=== PATIENT | female | born 1960 | race Caucasian/White ===

== ENCOUNTER 2023-12-03 21:16 | Emergency (ER) | payer OTHER, SELFPAY ==
[2023-12-03 21:31] VITALS: BP 135/76; PULSE 73; RESP 15; O2SAT 100
--- NOTE | 2023-12-03 21:40 | ED.GENADULT ---
HPI - General Adult General Chief complaint: Allergic Reaction Stated complaint: allergic reaction to blood draw Time Seen by Provider: 12/03/23 21:28 History of Present Illness HPI narrative: This is a 61-year-old female presenting ED right arm redness. Patient had a blood draw by her primary care physician performed yesterday. Since then she had a expanding red area. At this point goes from approximately her wrist up into her middle of her bicep. It is warm to touch she says that it [place]. Patient denies fever chills nausea diarrhea. No history of cellulitis. Related Data Allergies Allergy/AdvReac Type Severity Reaction Status Date / Time tirzepatide [From Mounjaro] Allergy Rash Verified 12/03/23 21:19 esomeprazole AdvReac Unknown Verified 12/03/23 21:19 Sulfa (Sulfonamide AdvReac Rash Verified 12/03/23 21:19 Antibiotics) Exam Narrative: APPEARANCE: No apparent distress. Head: atraumatic. EYES: EOMI, NOSE: Atraumatic NECK: Trachea midline RESPIRATORY: No increased rate of breathing CARDIOVASCULAR: RRR, ABDOMINAL: Non-distended MUSCULOSKELETAl: No obvious deformities NEURO: Alert. Moving 4/4 extremities SKIN:: Erythema over the right arm from just proximal wrist to the mid biceps. Warm to touch. PSYCHIATRIC: Normal affect Course Vital Signs Vital signs: Vital Signs Pulse Rate 73 12/03/23 21:31 Respiratory Rate 15 12/03/23 21:31 Blood Pressure 135/76 12/03/23 21:31 Pulse Oximetry 100 12/03/23 21:31 Oxygen Delivery Room Air 12/03/23 21:31 Pulse Rate 73 12/03/23 21:31 Respiratory Rate 15 12/03/23 21:31 Blood Pressure 135/76 12/03/23 21:31 Pulse Oximetry 100 12/03/23 21:31 Oxygen Delivery Room Air 12/03/23 21:31 Medical Decision Making [facility] Narrative Medical decision making narrative: -Course: 63-year-old female presenting with redness of her right arm. This developed since a blood draw yesterday. Patient says she had this happen the past after she received a Mounjaro. She ended up being put on a long course of steroids by her oil rigger. At this time we will cover the patient for possible cellulitis although this is not a definitive diagnosis. Additionally the patient is requesting a short course of steroids which will be provided. She has been instructed to follow up closely with her PCP to ensure her symptoms are resolving. Given return precautions. 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 -Interventions: 1 g Ancef -Shared decision making / Disposition: Discharge -RX Keflex, medrol dose samuel Vital Signs Vital Signs: Vital Signs Pulse Rate 73 12/03/23 21:31 Respiratory Rate 15 12/03/23 21:31 Blood Pressure 135/76 12/03/23 21:31 Pulse Oximetry 100 12/03/23 21:31 Oxygen Delivery Room Air 12/03/23 21:31 Pulse Rate 73 12/03/23 21:31 Respiratory Rate 15 12/03/23 21:31 Blood Pressure 135/76 12/03/23 21:31 Pulse Oximetry 100 12/03/23 21:31 Oxygen Delivery Room Air 12/03/23 21:31 Discharge Plan Discharge Clinical Impression: Cellulitis Patient Disposition: Home, Self-Care Condition: Stable Instructions: Antibiotic Form, Cellulitis (ED) Additional Instructions: Please follow-up closely with your primary care physician in the next 1-2 days. Take Keflex/medrol dose samuel as instructed. Use Motrin and Tylenol for pain. If your redness continues to expand, becomes very painful or you develop systemic signs of illness such as fever or chills please return emergency department for re-evaluation. Prescriptions: New ibuprofen 800 mg tablet 800 mg PO TID PRN (Reason: pain) 7 Days Qty: 21 0RF acetaminophen 500 mg tablet 1,000 mg PO TID PRN (Reason: anatoly) 7 Days Qty: 42 0RF cephalexin 500 mg caps
[2023-12-03] MEDS: ceFAZolin 1 GM/NS 50 ML 1 GM/50 ML BAG IVPB (22:24)
[2023-12-03] MEDS: dexAMETHasone SOD PHOS INJ 10 MG/ML 1 ML VIAL IV PUSH (22:51)
[2023-12-03 23:21] VITALS: BP 132/84; PULSE 66; RESP 15; O2SAT 98
== END 2023-12-03 23:21 | disposition home or self-care (01) ==
LOC: ANHED 21:49
PROVIDERS: Emergency Provider Emergency Medicine
DX: L03.113 Cellulitis of right upper limb (principal)
CPT/HCPCS: 96365; 96375; 99284; J0690; J1100